=== PATIENT | female | born 1990 | race Caucasian/White ===

== ENCOUNTER 2017-03-08 01:12 | Emergency (ER) | payer MEDICAID ==
[2017-03-08 01:48] VITALS: BP 112/77
[2017-03-08 03:11] LABS: Basophils % (Auto) 0.8 % (0.0-1.8); Eosinophils % (Auto) 1.8 % (0.0-4.3); Hemoglobin 15.2 gm/dl (10.1-14.3); Mean Corpuscular HGB Conc 35 % (30-34); Mean Corpuscular Hemoglobin 28 pg (28-32); Mean Corpuscular Volume 81 fl (79-97); Platelet Count 202 K/mm3 (140-440); Red Blood Count 5.34 M/mm3 (3.65-5.03); Red Cell Distribution Width 13.7 % (13.2-15.2)
[2017-03-08 03:12] LABS: Bacteria,Urine 1+ /HPF (Negative); Bilirubin,Urine NEG (Negative); Blood,Urine SM (Negative); Ketones,Urine NEG (Negative); Leukocyte Esterase,Urine TR (Negative); Mucus,Urine FEW /HPF; Nitrite,Urine NEG (Negative); Protein,Urine <15 mg/dL mg/dL (Negative); Urobilinogen,Urine < 2.0 mg/dL (<2.0)
[2017-03-08 03:26] LABS: Alanine Aminotransferase 11 units/L (7-56); Albumin 4.2 g/dL (3.9-5); Alkaline Phosphatase 53 units/L (35-129); Anion Gap 22 mmol/L; BUN/Creatinine Ratio 23; Blood Urea Nitrogen 9 mg/dL (7-17); Calcium 9.6 mg/dL (8.4-10.2); Carbon Dioxide 21 mmol/L (22-30); Chloride 98.1 mmol/L (98-107); Glucose 76 mg/dL (65-100); Lipase 24 units/L (13-60); Potassium 3.7 mmol/L (3.6-5.0); Sodium 137 mmol/L (137-145); Total Protein 8.3 g/dL (6.3-8.2)
== END 2017-03-08 05:13 | disposition left against medical advice (07) ==
LOC: ED 01:12
DX: O26.891 Other specified pregnancy related conditions, first trimester (principal); R10.9 Unspecified abdominal pain; Z3A.11 11 weeks gestation of pregnancy; Z53.21 Procedure and treatment not carried out due to patient leaving prior to being seen by health care provider
CPT/HCPCS: 36415; 80053; 81001; 81025; 83690; 85025

== ENCOUNTER 2017-10-04 17:56 | Emergency (ER) | payer SELFPAY ==
[2017-10-04] MEDS ORDERED: NACL 0.9% 1000 ML 1,000 ML IV ONE (18:41)
[2017-10-04] MEDS ORDERED: ZOFRAN IV ONE (18:41)
[2017-10-04] MEDS ORDERED: DILAUDID IV ONE (18:41)
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
[2017-10-04 19:24] LABS: Basophils # (Auto) 0.1 K/mm3 (0.0-0.1); Basophils % (Auto) 0.4 % (0.0-1.8); Eosinophils % (Auto) 0.2 % (0.0-4.3); Hematocrit 37.4 % (30.3-42.9); Hemoglobin 12.2 gm/dl (10.1-14.3); Lymphocytes % (Auto) 5.3 % (13.4-35.0); Mean Corpuscular HGB Conc 33 % (30-34); Mean Corpuscular Volume 75 fl (79-97); Monocytes # (Auto) 0.8 K/mm3 (0.0-0.8); Monocytes % (Auto) 4.2 % (0.0-7.3); Platelet Count 445 K/mm3 (140-440); Red Blood Count 4.97 M/mm3 (3.65-5.03); Red Cell Distribution Width 16.9 % (13.2-15.2)
[2017-10-04 19:30] LABS: Mean Corpuscular Hemoglobin 25 pg (28-32)
[2017-10-04 19:41] LABS: INR 1.02 (0.87-1.13)
[2017-10-04 19:48] LABS: Alanine Aminotransferase 18 units/L (7-56); Albumin 3.4 g/dL (3.9-5); BUN/Creatinine Ratio 20; Blood Urea Nitrogen 12 mg/dL (7-17); Calcium 9.3 mg/dL (8.4-10.2); Creatine Kinase MB < 1.0 ng/mL (0.0-4.0); Hemolysis Index 16
--- NOTE | 2017-10-04 21:21 | Cat Scan Report ---
FINAL REPORT PROCEDURE: CT head without contrast. TECHNIQUE: Computerized tomography of the head was performed without contrast material. HISTORY: Syncope, . COMPARISON: No prior studies are available for comparison. FINDINGS: The ventricles are normal in size. The padilla matter and white matter appear normal. There are no mass lesions. There is no intracranial hemorrhage. The calvarium appears intact. There is opacification of the right mastoid air cells. The paranasal sinuses are clear as far as visualized. IMPRESSION: Normal study of the brain. Right mastoiditis.
--- NOTE | 2017-10-04 22:02 | Cat Scan Report ---
FINAL REPORT EXAM: CT ANGIO CHEST HISTORY: syncope, TECHNIQUE: High-resolution helical axial images were obtained of the chest during intravenous administration of iodinated contrast. Images are reconstructed in the sagittal and coronal planes. PRIORS: None. FINDINGS: There is no evidence of pulmonary embolism, the pulmonary arteries opacify normally. The heart and thoracic aorta appear normal. The lungs are clear. Images through the upper abdomen are unremarkable. There is multilevel Schmorl's node formation of the lower thoracic spine. IMPRESSION: 1. No evidence of pulmonary embolism. 2. No acute findings in the chest
--- NOTE | 2017-10-04 22:18 | Cat Scan Report ---
FINAL REPORT EXAM: CT ABDOMEN PELVIS W CON HISTORY: syncope, , back and abd pain TECHNIQUE: Helical CT scan through the abdomen and pelvis during intravenous injection of iodinated contrast. Images are reconstructed in the sagittal and coronal planes. Oral contrast was not given. PRIORS: None. FINDINGS: The lung bases are clear. There is a 8 mm cyst in the left lobe of the liver. Otherwise, the liver appears normal. The gallbladder, pancreas, spleen and adrenal glands appear normal. The kidneys appear normal. The uterus is enlarged consistent with recent state. The left ovary appears normal. The right ovary is not seen. The stomach appears grossly within normal limits. There are no abnormally dilated loops of bowel or acute inflammatory changes. The appendix is not seen in there are surgical clips in its expected location. The abdominal aorta has a normal diameter. There is Schmorl's node formation in the superior endplates from T10 through L2. The bones and subcutaneous soft tissues are unremarkable for age. IMPRESSION: No acute findings in the abdomen/pelvis There has probably been a prior appendectomy. Early degenerative changes of the lower thoracic and upper lumbar spine
[2017-10-04 22:35] LABS: Bacteria,Urine 1+ /HPF (Negative); Bilirubin,Urine NEG (Negative); Blood,Urine MOD (Negative); Color,Urine Yellow (Yellow); Mucus,Urine FEW /HPF; Protein,Urine <15 mg/dL mg/dL (Negative); Urobilinogen,Urine < 2.0 mg/dL (<2.0)
[2017-10-04] MEDS ORDERED: TORADOL IV ONE (23:06)
[2017-10-04] MEDS ORDERED: PERCOCET 5/325 PO ONE (23:06)
[2017-10-05 00:19] VITALS: BP 108/67
== END 2017-10-05 00:48 | disposition home or self-care (01) ==
LOC: ED 17:56
DX: R55 Syncope and collapse (principal); F43.8 Other reactions to severe stress; H70.90 Unspecified mastoiditis, unspecified ear; D72.829 Elevated white blood cell count, unspecified; Z90.49 Acquired absence of other specified parts of digestive tract
CPT/HCPCS: 36415; 70450; 71275; 74177; 80053; 81001; 82550; 82553; 84484; 85025; 85610; 93005; 93010; 96361; 96374; 96375; 99284; J1170; J1885; J2405; J7030; Q9967

== ENCOUNTER 2018-10-27 02:13 | Emergency (ER) | payer MEDICAID, OTHER ==
[2018-10-27 02:46] LABS: Bilirubin,Urine NEG (Negative); Blood,Urine SM (Negative); Color,Urine Straw (Yellow); Protein,Urine <15 mg/dL mg/dL (Negative); Urobilinogen,Urine < 2.0 mg/dL (<2.0); WBC,Urine < 1.0 /HPF (0.0-6.0)
[2018-10-27 02:48] LABS: HCG Qualitative,Urine Positive (Negative)
[2018-10-27] MEDS ORDERED: XYLOCAINE 1% MPF 5 mL INFILTRATI ONE (04:23)
[2018-10-27] MEDS ORDERED: ROCEPHIN IM ONE (04:23)
[2018-10-27] MEDS ORDERED: ZITHROMAX PO ONE (04:23)
--- NOTE | 2018-10-27 04:33 | Emergency Department Report ---
ED Female HPI - General Chief complaint: Urogenital-Female Stated complaint: SWOLLEN LEFT LABIA Time Seen by Provider: 10/27/18 04:21 Source: patient Mode of arrival: Ambulatory Limitations: No Limitations - History of Present Illness Initial comments: Patient is a 28-year-old female who presents for left-sided Bartholin cyst surgical problem for this patient patient currently weeks has [facility] follow-up in 2 days prior states he cannot wait 2 more days to have it lanced patient denies having discharge no abdominal pain no nausea vomiting no fever or chills patient is very same partner multiple years denies concern for STD , however bartholin cyst is a recurring problem MD Complaint: pelvic pain Onset/Timin -: days(s) Location: labia (left ) Severity: moderate Severity scale (0 -10): 5 Quality: sharp Consistency: constant Improves with: none Worsens with: other (palpation) Are you Now?: Yes - Related Data Sexually active: Yes : 4 Para: 1 A: 2 Previous Rx's Medication Instructions Recorded Last Taken Type LORazepam [Ativan] 1 mg PO BID PRN #15 tablet 07/21/14 Unknown Rx oxyCODONE /ACETAMINOPHEN [Percocet 1 - 2 tab PO Q6HR PRN #15 tablet 08/01/14 Unknown Rx 5/325] Acetaminophen/Codeine [Tylenol #3] 1 tab PO Q6H PRN #14 tab 10/16/14 Unknown Rx Clarithromycin [Biaxin] 500 mg PO BID #20 tab 10/16/14 Unknown Rx DOXYCYCLINE Hyclate [Vibramycin 100 mg PO BID #20 capsule 10/16/14 Unknown Rx CAP] Amoxicillin/Potassium Clav 1 each PO BID #20 tablet 10/05/17 Unknown Rx [Augmentin 875-125 Tablet] HYDROcodone/APAP 5-325 [[place] 1 each PO Q6HR PRN #20 tablet 10/05/17 Unknown Rx 5/325] Acetaminophen [Acetaminophen TAB] 650 mg PO Q6HR PRN #30 tablet 10/27/18 Unknown Rx cephALEXin [Keflex] 500 mg PO Q8HR 10 Days #30 cap 10/27/18 Unknown Rx metroNIDAZOLE [metroNIDAZOLE 1 applicatio VG QHS 7 Days #1 tube 10/27/18 Unknown Rx VAGINAL 0.75% gel] Allergies Allergy/AdvReac Type Severity Reaction Status Date / Time No Known Allergies Allergy Verified 06/15/13 22:39 ED Review of Systems ROS: Stated complaint: SWOLLEN LEFT LABIA Other details as noted in HPI Constitutional: denies: chills, fever Eyes: denies: eye pain, eye discharge, vision change ENT: denies: ear pain, throat pain Respiratory: denies: cough, shortness of breath, wheezing Cardiovascular: denies: chest pain, palpitations Endocrine: no symptoms reported Gastrointestinal: denies: abdominal pain, nausea, diarrhea Genitourinary: other (left bartholin cyst ). denies: urgency, dysuria, discharge Musculoskeletal: denies: back pain, joint swelling, arthralgia Skin: denies: rash, lesions Neurological: denies: headache, weakness, paresthesias Psychiatric: denies: anxiety, depression Hematological/Lymphatic: denies: easy bleeding, easy bruising ED Past Medical Hx - Past Medical History Previous Medical History?: Yes Hx HIV: Yes Additional medical history: previous back surgeries - Surgical History Past Surgical History?: Yes Hx Appendectomy: Yes Additional Surgical History: 3 lap surgeries, back surgery. barlin cyst - Social History Smoking Status: Current Every Day Smoker Substance Use Type: None - Medications Home Medications: Home Medications Medication Instructions Recorded Confirmed Last Taken Type LORazepam [Ativan] 1 mg PO BID PRN #15 tablet 07/21/14 Unknown Rx oxyCODONE /ACETAMINOPHEN [Percocet 1 - 2 tab PO Q6HR PRN #15 tablet 08/01/14 Unknown Rx 5/325] Acetaminophen/Codeine [Tylenol #3] 1 tab PO Q6H PRN #14 tab 10/16/14 Unknown Rx Clarithromycin [Biaxin] 500 mg PO BID #20 tab 10/16/14 Unknown Rx DOXYCYCLINE Hyclate [Vibramycin 100 mg PO BID #20 capsule 10/16/14 Unknown Rx CAP] Amoxicillin/Potassium Clav 1 each PO BID #20 tablet 10/05/17 Unknown Rx [Augmentin 875-125 Tablet] HYDROcodone/APAP 5-325 [[place] 1 each PO Q6HR PRN #20 tablet 10/05/17 Unknown Rx 5/325] Acetaminophen [Acetaminophen TAB] 650 mg PO Q6HR PRN #30 tablet 10/27/18 Unknown Rx cephALEXin [Keflex] 500 mg PO Q8HR 10 Days #30 cap 10/27/18 Unknown Rx metroNIDAZOLE [metroNIDAZOLE 1 applicatio VG QHS 7 Days #1 tube 10/27/18 Unknown Rx VAGINAL 0.75% gel] ED Physical Exam - General Limitations: No Limitations General appearance: alert, in no apparent distress - Head Head exam: Present: atraumatic, normocephalic - Eye Eye exam: Present: normal appearance, PERRL, EOMI Pupils: Present: normal accommodation - ENT ENT exam: Present: mucous membranes moist - Neck Neck exam: Present: normal inspection, tenderness, full ROM. Absent: meningismus, lymphadenopathy, thyromegaly - Respiratory Respiratory exam: Present: normal lung sounds bilaterally. Absent: respiratory distress, wheezes, stridor, chest wall tenderness - Cardiovascular Cardiovascular Exam: Present: regular rate, normal rhythm, normal heart sounds. Absent: systolic murmur, diastolic murmur, rubs, gallop - GI/Abdominal GI/Abdominal exam: Present: soft, normal bowel sounds. Absent: tenderness, rebound, bruit, hernia - Rectal Rectal exam: Present: deferred - External exam: Present: erythema, swelling (left labia ). Absent: lesions, lacerations, ecchymosis, bleeding - Extremities Exam Extremities exam: Present: normal inspection, full ROM, normal capillary refill. Absent: tenderness, pedal edema, joint swelling, calf tenderness - Back Exam Back exam: Present: normal inspection, full ROM. Absent: tenderness, CVA tenderness (R), CVA tenderness (L), muscle spasm, paraspinal tenderness, vertebral tenderness, rash noted - Neurological Exam Neurological exam: Present: alert, oriented X3, CN II-XII intact, normal gait, reflexes normal. Absent: motor sensory deficit - Psychiatric Psychiatric exam: Present: normal affect, normal mood - Skin Skin exam: Present: warm, dry, intact, normal color. Absent: rash ED Course Vital Signs 10/27/18 02:18 Temperature 98.0 F Pulse Rate 117 H Respiratory 18 Rate Blood Pressure 110/56 O2 Sat by Pulse 100 Oximetry - I & D Left Vagina Type of Procedure: Simple Site: left labia Blade Size: 11 I & D Procedure: betadine prep, sterile drapes applied, sterile dressing applied Progress: left labia bartholin cyst site cleaned with betadine solution, anesthesia with lidcaine 1% 2 cc, incision with 11 blade x 1 scant clear discharg, irrigated wthi 40 cc sterile saline, sterile dressing applied all bleeding is controlled pt given wound care instructions pt for dc to home in stable condition at this time. ED Medical Decision Making - Medical Decision Making bartholin cyst left for I&D see procedure noted , pt tolerated procedure with minimal distress pt for dc to home in stable condition , is ambualtary with steady gait. pt will follow up in 2 days to OBGYN as as scheduled. Critical care attestation.: If time is entered above; I have spent that time in minutes in the direct care of this critically ill patient, excluding procedure time. ED Disposition Clinical Impression: Bartholin's cyst Disposition: DC-01 TO HOME OR SELFCARE Is pt being admited?: No Does the pt Need Aspirin: No Condition: Stable Instructions: Bartholin Cyst (ED) Prescriptions: metroNIDAZOLE [metroNIDAZOLE VAGINAL 0.75% gel] 1 applicatio VG QHS 7 Days #1 tube Acetaminophen [Acetaminophen TAB] 650 mg PO Q6HR PRN #30 tablet PRN Reason: Pain cephALEXin [Keflex] 500 mg PO Q8HR 10 Days #30 cap Referrals: [facility] [Provider Group] - 3-5 Days [facility] [Outside] - 3-5 Days Forms: Work/School Release Form(ED) Time of Disposition: 04:48
[2018-10-27 05:10] VITALS: BP 121/67
== END 2018-10-27 05:00 | disposition home or self-care (01) ==
LOC: ED 02:13
DX: N75.0 Cyst of Bartholin's gland (principal); F17.200 Nicotine dependence, unspecified, uncomplicated; Z90.89 Acquired absence of other organs
CPT/HCPCS: 56420; 81001; 81025; 96372; 99283; J0696

== ENCOUNTER 2018-12-15 18:00 | Emergency (ER) | payer MEDICAID, OTHER ==
[2018-12-15] MEDS ORDERED: TYLENOL ONE (18:15)
[2018-12-15] MEDS ORDERED: TYLENOL PO ONE (18:18)
--- NOTE | 2018-12-15 18:18 | Event Note ---
ED Screening Note ED Screening Note: 2 M WITH EAR PAIN PAIN OUT OF PROP TO COMPLAINTS DENIES N/V/D DENIES ABD PAIN/ VAG BLEEDING OR DC HIV POS TYLENOL GIVEN IN TRIAGE This initial assessment/diagnostic orders/clinical plan/treatment(s) is/are subject to change based on patients health status, clinical progression and re-assessment by fellow clinical providers in the ED. Further treatment and workup at subsequent clinical providers discretion. Patient/guardian urged not to elope from the ED as their condition may be serious if not clinically assessed and managed. Initial orders include: LABS FLUSH EAR EVAL IN ACC
[2018-12-15 19:39] LABS: Hematocrit 37.3 % (30.3-42.9); Hemoglobin 12.8 gm/dl (10.1-14.3); Mean Corpuscular HGB Conc 34 % (30-34); Mean Corpuscular Volume 82 fl (79-97); Platelet Count 151 K/mm3 (140-440); Red Blood Count 4.56 M/mm3 (3.65-5.03); Red Cell Distribution Width 14.3 % (13.2-15.2)
[2018-12-15 19:56] LABS: BUN/Creatinine Ratio 12; Blood Urea Nitrogen 6 mg/dL (7-17); Calcium 8.8 mg/dL (8.4-10.2); Hemolysis Index 34
--- NOTE | 2018-12-15 20:30 | Emergency Department Report ---
ED ENT HPI - General Chief complaint: Earache Stated complaint: 3MTHS /L EAR INFECTION Time Seen by Provider: 12/15/18 18:12 Source: patient Mode of arrival: Ambulatory Limitations: No Limitations - History of Present Illness Initial comments: Patient is a 28-year-old female who presents for left ear pain and drainage 3 days patient denies fevers or chills pain is 5/10 aching there is no decrease in hearing drainage is brown plan Ciprodex follow up with PCP Tylenol when necessary pain MD complaint: ear pain Onset/Timin -: days(s) Location: L ear Severity: moderate Severity scale (0 -10): 4 Quality: aching Consistency: constant Improves with: rest Worsens with: movement Associated Symptoms: discharge from ear. denies: fever, cough, pain with swallowing, sore throat, tinnitus, rhinorrhea - Related Data Previous Rx's Medication Instructions Recorded Last Taken Type LORazepam [Ativan] 1 mg PO BID PRN #15 tablet 07/21/14 Unknown Rx oxyCODONE /ACETAMINOPHEN [Percocet 1 - 2 tab PO Q6HR PRN #15 tablet 08/01/14 Unknown Rx 5/325] Acetaminophen/Codeine [Tylenol #3] 1 tab PO Q6H PRN #14 tab 10/16/14 Unknown Rx Clarithromycin [Biaxin] 500 mg PO BID #20 tab 10/16/14 Unknown Rx DOXYCYCLINE Hyclate [Vibramycin 100 mg PO BID #20 capsule 10/16/14 Unknown Rx CAP] Amoxicillin/Potassium Clav 1 each PO BID #20 tablet 10/05/17 Unknown Rx [Augmentin 875-125 Tablet] HYDROcodone/APAP 5-325 [[place] 1 each PO Q6HR PRN #20 tablet 10/05/17 Unknown Rx 5/325] Acetaminophen [Acetaminophen TAB] 650 mg PO Q6HR PRN #30 tablet 10/27/18 Unknown Rx cephALEXin [Keflex] 500 mg PO Q8HR 10 Days #30 cap 10/27/18 Unknown Rx metroNIDAZOLE [metroNIDAZOLE 1 applicatio VG QHS 7 Days #1 tube 10/27/18 Unknown Rx VAGINAL 0.75% gel] Acetaminophen [Acetaminophen TAB] 650 mg PO Q6HR PRN #30 tablet 12/15/18 Unknown Rx Ciprofloxacin HCl/Dexameth 4 drops OT BID 10 Days #7.5 ml 12/15/18 Unknown Rx [Ciprodex Otic Suspension] Allergies Allergy/AdvReac Type Severity Reaction Status Date / Time No Known Allergies Allergy Verified 12/15/18 18:02 ED Dental HPI - General Chief complaint: Earache Stated complaint: 3MTHS /L EAR INFECTION Time Seen by Provider: 12/15/18 18:12 Source: patient Mode of arrival: Ambulatory Limitations: No Limitations - Related Data Previous Rx's Medication Instructions Recorded Last Taken Type LORazepam [Ativan] 1 mg PO BID PRN #15 tablet 07/21/14 Unknown Rx oxyCODONE /ACETAMINOPHEN [Percocet 1 - 2 tab PO Q6HR PRN #15 tablet 08/01/14 Unknown Rx 5/325] Acetaminophen/Codeine [Tylenol #3] 1 tab PO Q6H PRN #14 tab 10/16/14 Unknown Rx Clarithromycin [Biaxin] 500 mg PO BID #20 tab 10/16/14 Unknown Rx DOXYCYCLINE Hyclate [Vibramycin 100 mg PO BID #20 capsule 10/16/14 Unknown Rx CAP] Amoxicillin/Potassium Clav 1 each PO BID #20 tablet 10/05/17 Unknown Rx [Augmentin 875-125 Tablet] HYDROcodone/APAP 5-325 [[place] 1 each PO Q6HR PRN #20 tablet 10/05/17 Unknown Rx 5/325] Acetaminophen [Acetaminophen TAB] 650 mg PO Q6HR PRN #30 tablet 10/27/18 Unknown Rx cephALEXin [Keflex] 500 mg PO Q8HR 10 Days #30 cap 10/27/18 Unknown Rx metroNIDAZOLE [metroNIDAZOLE 1 applicatio VG QHS 7 Days #1 tube 10/27/18 Unknown Rx VAGINAL 0.75% gel] Acetaminophen [Acetaminophen TAB] 650 mg PO Q6HR PRN #30 tablet 12/15/18 Unknown Rx Ciprofloxacin HCl/Dexameth 4 drops OT BID 10 Days #7.5 ml 12/15/18 Unknown Rx [Ciprodex Otic Suspension] Allergies Allergy/AdvReac Type Severity Reaction Status Date / Time No Known Allergies Allergy Verified 12/15/18 18:02 ED Review of Systems ROS: Stated complaint: 3MTHS /L EAR INFECTION Other details as noted in HPI Constitutional: denies: chills, fever Eyes: denies: eye pain, eye discharge, vision change ENT: ear pain Respiratory: denies: cough, shortness of breath, wheezing Cardiovascular: denies: chest pain, palpitations Endocrine: no symptoms reported Gastrointestinal: denies: abdominal pain, nausea, diarrhea Genitourinary: denies: urgency, dysuria, discharge Musculoskeletal: denies: back pain, joint swelling, arthralgia Skin: denies: rash, lesions Neurological: denies: headache, weakness, paresthesias Psychiatric: denies: anxiety, depression Hematological/Lymphatic: denies: easy bleeding, easy bruising ED Past Medical Hx - Past Medical History Hx HIV: Yes Additional medical history: previous back surgeries - Surgical History Hx Appendectomy: Yes Additional Surgical History: 3 lap surgeries, back surgery. barlin cyst - Social History Smoking Status: Current Every Day Smoker Substance Use Type: None - Medications Home Medications: Home Medications Medication Instructions Recorded Confirmed Last Taken Type LORazepam [Ativan] 1 mg PO BID PRN #15 tablet 07/21/14 Unknown Rx oxyCODONE /ACETAMINOPHEN [Percocet 1 - 2 tab PO Q6HR PRN #15 tablet 08/01/14 Unknown Rx 5/325] Acetaminophen/Codeine [Tylenol #3] 1 tab PO Q6H PRN #14 tab 10/16/14 Unknown Rx Clarithromycin [Biaxin] 500 mg PO BID #20 tab 10/16/14 Unknown Rx DOXYCYCLINE Hyclate [Vibramycin 100 mg PO BID #20 capsule 10/16/14 Unknown Rx CAP] Amoxicillin/Potassium Clav 1 each PO BID #20 tablet 10/05/17 Unknown Rx [Augmentin 875-125 Tablet] HYDROcodone/APAP 5-325 [[place] 1 each PO Q6HR PRN #20 tablet 10/05/17 Unknown Rx 5/325] Acetaminophen [Acetaminophen TAB] 650 mg PO Q6HR PRN #30 tablet 10/27/18 Unknown Rx cephALEXin [Keflex] 500 mg PO Q8HR 10 Days #30 cap 10/27/18 Unknown Rx metroNIDAZOLE [metroNIDAZOLE 1 applicatio VG QHS 7 Days #1 tube 10/27/18 Unknown Rx VAGINAL 0.75% gel] Acetaminophen [Acetaminophen TAB] 650 mg PO Q6HR PRN #30 tablet 12/15/18 Unknown Rx Ciprofloxacin HCl/Dexameth 4 drops OT BID 10 Days #7.5 ml 12/15/18 Unknown Rx [Ciprodex Otic Suspension] ED Physical Exam - General Limitations: No Limitations General appearance: alert, in no apparent distress - Head Head exam: Present: atraumatic, normocephalic - Eye Eye exam: Present: normal appearance, PERRL, EOMI Pupils: Present: normal accommodation - ENT ENT exam: Present: normal orophraynx, mucous membranes moist, normal external ear exam - Expanded ENT Exam Expanded Ear exam: Present: normal external inspection TM/Canal exam: Canal Discharge: Left TM, Canal Tenderness: Left TM - Neck Neck exam: Present: normal inspection, full ROM. Absent: tenderness, lymphadenopathy, thyromegaly - Respiratory Respiratory exam: Present: normal lung sounds bilaterally. Absent: wheezes, stridor, chest wall tenderness - Cardiovascular Cardiovascular Exam: Present: regular rate, normal rhythm, normal heart sounds. Absent: systolic murmur, diastolic murmur, rubs, gallop - GI/Abdominal GI/Abdominal exam: Present: soft, normal bowel sounds. Absent: distended, tenderness, bruit, hernia - Rectal Rectal exam: Present: deferred - Extremities Exam Extremities exam: Present: normal inspection, full ROM, normal capillary refill. Absent: tenderness - Back Exam Back exam: Present: normal inspection, full ROM. Absent: tenderness, CVA tenderness (R), CVA tenderness (L), rash noted - Neurological Exam Neurological exam: Present: alert, oriented X3, CN II-XII intact, normal gait, reflexes normal - Psychiatric Psychiatric exam: Present: normal affect, normal mood - Skin Skin exam: Present: warm, dry, intact, normal color. Absent: rash ED Medical Decision Making - Lab Data Result diagrams: 12/15/18 19:09 12/15/18 19:09 - Medical Decision Making This is OE plan ciprodex follow up with pcp in 2-3 days return to emergency if symptoms worsen. Critical care attestation.: If time is entered above; I have spent that time in minutes in the direct care of this critically ill patient, excluding procedure time. ED Disposition Clinical Impression: Otitis externa Qualifiers: Otitis externa type: unspecified type Chronicity: acute Laterality: left Qualified Code(s): H60.502 - Unspecified acute noninfective otitis externa, left ear Disposition: DC- TO HOME OR SELFCARE Is pt being admited?: No Does the pt Need Aspirin: No Condition: Stable Instructions: Otitis Externa (ED) Prescriptions: Acetaminophen [Acetaminophen TAB] 650 mg PO Q6HR PRN #30 tablet PRN Reason: Pain Ciprofloxacin HCl/Dexameth [Ciprodex Otic Suspension] 4 drops OT BID 10 Days #7.5 ml Referrals: CICI WEBER MD [Staff Physician] - 3-5 Days FELICITA HOLGUIN MD [Staff Physician] - 3-5 Days Forms: Work/School Release Form(ED)
[2018-12-15 20:42] VITALS: BP 98/66
== END 2018-12-15 20:38 | disposition home or self-care (01) ==
LOC: ED 18:00
DX: H60.502 Unspecified acute noninfective otitis externa, left ear (principal); F17.200 Nicotine dependence, unspecified, uncomplicated
CPT/HCPCS: 36415; 80048; 84702; 85027

== ENCOUNTER 2019-05-12 23:16 | Inpatient (IN) | payer MEDICAID ==
[2019-05-12] MEDS: LACTATED RINGERS 1,000 ML IV SCH (23:30)
[2019-05-12] MEDS ORDERED: LACTATED RINGERS 2,000 ML ONE (23:34)
[2019-05-12] MEDS ORDERED: OXYTOCIN 20 UNIT/1000ML DRIP 20 UNITS/1,000 ML BAG IV SCH (23:45)
[2019-05-12] MEDS ORDERED: ceFAZolin/Water 2 GM/20 ML 2 GM/20 ML SYRINGE IV NR (23:45)
[2019-05-12] MEDS ORDERED: BICITRA ORAL LIQD 30ML PO ONE (23:53)
[2019-05-12] MEDS ORDERED: ZIDOVUDINE IV ONE (23:53)
[2019-05-12] MEDS ORDERED: METOCLOPRAMIDE 10 MG/2 ML INJ IV ONE (23:53)
[2019-05-12] MEDS ORDERED: DEXTROSE 5% IV ONE (23:53)
[2019-05-12] MEDS ORDERED: WATER IV ONE (23:53)
[2019-05-12] MEDS ORDERED: FAMOTIDINE 20 MG/2 ML INJ IV ONE (23:53)
[2019-05-13] MEDS ORDERED: BICITRA ORAL LIQD 30ML ONE (00:01)
[2019-05-13] MEDS ORDERED: FAMOTIDINE 20 MG/2 ML INJ IV ONE (00:01)
[2019-05-13] MEDS ORDERED: METOCLOPRAMIDE 10 MG/2 ML INJ ONE (00:01)
[2019-05-13] MEDS ORDERED: ceFAZolin/Water 2 GM/20 ML 2 GM/20 ML SYRINGE IV ONE (00:01)
[2019-05-13] MEDS ORDERED: OXYTOCIN 20 UNIT/1000ML DRIP 40,000 MILLIUNITS/2,000 ML BAG IV ONE (00:01)
[2019-05-13 00:21] LABS: Basophils # (Auto) 0.1 K/mm3 (0.0-0.1); Basophils % (Auto) 0.7 % (0.0-1.8); Eosinophils # (Auto) 0.1 K/mm3 (0.0-0.4); Eosinophils % (Auto) 0.9 % (0.0-4.3); Hematocrit 36.3 % (30.3-42.9); Lymphocytes # (Auto) 1.7 K/mm3 (1.2-5.4); Lymphocytes % (Auto) 18.5 % (13.4-35.0); Mean Corpuscular HGB Conc 33 % (30-34); Mean Corpuscular Volume 78 fl (79-97); Monocytes # (Auto) 0.7 K/mm3 (0.0-0.8); Platelet Count 210 K/mm3 (140-440); Red Blood Count 4.66 M/mm3 (3.65-5.03); Red Cell Distribution Width 14.9 % (13.2-15.2)
--- NOTE | 2019-05-13 00:29 | Anesthesia Consultation ---
Anesthesia Consult and Med Hx Date of service: 05/13/19 - Airway Anesthetic Teeth Evaluation: Poor, Partials ROM Head & Neck: Adequate Mental/Hyoid Distance: Adequate Mallampati Class: Class III Intubation Access Assessment: Probably Good - Pulmonary Exam CTA: Yes - Cardiac Exam Cardiac Exam: RRR - Pre-Operative Health Status ASA Pre-Surgery Classification: ASA3, Emergency Proposed Anesthetic Plan: Epidural - Pulmonary Hx Smoking: No Hx Asthma: No Hx Respiratory Symptoms: No SOB: No COPD: No Home Oxygen Therapy: No Hx Pneumonia: No Hx Sleep Apnea: No - Cardiovascular System Hx Hypertension: No Hx Coronary Artery Disease: No Hx Heart Attack/AMI: No Hx Angina: No Hx Percutaneous Transluminal Coronary Angioplasty (PTCA): No Hx Cardia Arrhythmia: No Hx Pacemaker: No Hx Internal Defibrillator: No Hx Valvular Heart Disease: No Hx Heart Murmur: No Hx Peripheral Vascular Disease: No - Central Nervous System Hx Neuromuscular Disorder: No Hx Seizures: Yes (with last ) CVA: No Hx Back Pain: Yes Hx Psychiatric Problems: No - Gastrointestinal Hx Ulcer: No Hx Gastroesophageal Reflux Disease: Yes - Endocrine Hx Renal Disease: No Hx End Stage Renal Disease: No Hx Cirrhosis: No Hx Liver Disease: No Hx Insulin Dependent Diabetes: No Hx Non-Insulin Dependent Diabetes: No Hx Thyroid Disease: No Hx Hypothyroidism: No Hx Hyperthyroidism: No - Hematic Hx Anemia: No Hx Sickle Cell Disease: No - Other Systems Hx Alcohol Use: Yes Hx Substance Use: No Hx Cancer: No Hx Obesity: No - Additional Comments Anesthesia Medical History Comments: PSH: SOHAIL, LANCING OF BOIL CYST
[2019-05-13] MEDS ORDERED: ONDANSETRON 4 MG/2 ML INJ IV PRN ×2 (00:30→06:27)
[2019-05-13] MEDS ORDERED: HYDROmorphone 1 MG/1 ML INJ IV PRN ×2 (00:30)
[2019-05-13] MEDS ORDERED: fentaNYL 100 MCG/2 ML INJ ONE (00:30)
--- NOTE | 2019-05-13 00:30 | Anesthesia Day of Surgery ---
Anesthesia Day of Surgery - Day of Surgery Patient Examined: Yes Patient H&P Reviewed: Yes Patient is NPO: Yes Beta Blockers: No Cardiac Clearance: No Pulmonary Clearance: No Demetris's Test: N/A
--- NOTE | 2019-05-13 00:52 | History and Physical Report ---
History of Present Illness Date of examination: 05/13/19 Chief complaint: contractions History of present illness: Pt is a 28 year old female YINKA 06/07/19 at 36w3d presents with re gular painful contractions for the past 2-3 hours. She was noted to be 4/80/-1 on exam. She denies leakage of fluid or vaginal bleeding. She has had care at [facility] with limited records available for review. Her course has been complicated by HIV positive status on retroviral therapy with undetectable viral load on 04/23/19 and repeat viral load drawn in the office today. CD4 count was 318n on 04/21/19. She has a history of one prior section. She also has a h/o seizure disorder s/p Neurology referral. Her GBS status is unknown. Past History Past Medical History: seizure, other (HIV) Past Surgical History: appendectomy, REWEAVER/uterine surgery (bartholin cyst excision ), section, other ("exploratory surgery" ) REWEAVER History: HIV Social history: - Obstetrical History Expected Date of Delivery: 06/07/19 Actual Gestation: 36 Week(s) 3 Day(s) : 4 Para: 1 Hx # Term Pregnancies: 1 Number of Pregnancies: 0 Spontaneous Abortions: 1 Induced : 1 Number of Living Children: 1 Medications and Allergies Allergies Allergy/AdvReac Type Severity Reaction Status Date / Time No Known Allergies Allergy Verified 05/12/19 23:22 Home Medications Medication Instructions Recorded Confirmed Last Taken Type Bictegrav/Emtricit/Tenofov Ala 50 mg PO DAILY 04/11/19 05/13/19 05/12/19 History [Biktarvy 50-200-25 mg (Nf)] Active Meds: Active Medications Hydromorphone HCl (Dilaudid) 0.5 mg IV Q5M PRN PRN Reason: BREAK Stop: 05/13/19 06:59 Hydromorphone HCl (Dilaudid) 0.5 mg IV Q4H PRN PRN Reason: breakthrough pain > 7/10 Oxytocin/Sodium Chloride (Pitocin/Ns 20 Unit/1000ml Drip) 20 units in 1,000 mls @ 0 mls/hr IV TITR JAGDEEP Lactated Ringer's (Lactated Ringers) 1,000 mls @ 2,250 mls/hr IV PREOP JAGDEEP Stop: 05/14/19 00:12 Zidovudine 400 mg/ Dextrose 200 mls @ 33.566 mls/hr IV DIRECT JAGDEEP Zidovudine 134 mg/ Dextrose 113.4 mls @ 113.4 mls/hr IV ONCE ONE Stop: 05/13/19 00:52 Ondansetron HCl (Zofran) 4 mg IV Q8H PRN PRN Reason: Nausea And Vomiting Sodium Chloride (Sodium Chloride Flush Syringe 10 Ml) 10 ml IV PRN PRN PRN Reason: LINE FLUSH Review of Systems All systems: negative - Physical Exam Breasts: Positive: deferred Cardiovascular: Regular rate Lungs: Positive: Clear to auscultation Abdomen: Positive: soft (gravid ) Genitourinary (Female): Positive: normal external genitalia Uterus: Positive: enlarged (gravid ) Extremities: Positive: normal - Obstetrical FHR: category 2 Uterine Contraction Monitor Mode: External Cervical Dilatation: 4 (per RN ) Cervical Effacement Percentage: 80 station: -1 Uterine Contraction Pattern: Regular Uterine Tone Measurement Phase: Resting Uterine Contraction Intensity: Strong/Firm Results Result Diagrams: 05/12/19 23:53 Abnormal lab results 05/12/19 Range/Units 23:53 MCV 78 L (79-97) fl MCH 26 L (28-32) pg Seg Neutrophils % 72.9 H (40.0-70.0) % All other labs normal. Assessment and Plan A: IUP at 36w3d Active labor Prior section HIV Positive status Seizure Disorder GBS unknown P: Admit to labor and delivery Initiate AZT protocol Proceed with repeat section and other indicated procedures NICU aware
[2019-05-13] MEDS ORDERED: DEXMEDETOMIDINE 200 MCG/2 ML VIAL IV ONE (00:58)
[2019-05-13] MEDS ORDERED: ZIDOVUDINE 400 MG in DEXTROSE 5% IN WATER 160 ML IV SCH (01:00)
[2019-05-13 01:08] LABS: Hepatitis C Virus Antibody Non-Reactive (NonReactive)
[2019-05-13 01:09] LABS: Amphetamine Screen,Urine PRESUMPTIVE NEGATIVE; Benzodiazepines Screen,Urine PRESUMPTIVE NEGATIVE; Cocaine Screen,Urine PRESUMPTIVE NEGATIVE; Methadone Screen,Urine PRESUMPTIVE NEGATIVE; Opiate Screen,Urine PRESUMPTIVE NEGATIVE
[2019-05-13 01:24] LABS: HCG,Quantitative 22242 mIU/mL (0-4)
[2019-05-13] MEDS ORDERED: ceFAZolin 1 GM VIAL IV ONE (01:45)
[2019-05-13] MEDS ORDERED: SODIUM CHLORIDE 0.9% IRR 1,500 ML BOTTLE IR ONE (01:45)
[2019-05-13] MEDS ORDERED: WATER FOR IRRIG STERILE 1,500 ML BOTTLE IR ONE (01:45)
[2019-05-13] MEDS ORDERED: PHENYLEPHRINE 10 MG/1 ML INJ SDV ONE (01:59)
[2019-05-13 02:03] LABS: Cannabinoid Screen,Urine PRESUMPTIVE POSITIVE
[2019-05-13] MEDS ORDERED: OXYTOCIN 10 UNIT/1 ML INJ ONE (02:27)
[2019-05-13] MEDS ORDERED: KETOROLAC 30 MG/1 ML INJ ONE (02:29)
[2019-05-13] MEDS ORDERED: ONDANSETRON 4 MG/2 ML INJ ONE (02:30)
--- NOTE | 2019-05-13 03:15 | Operative Report ---
Operative Report Operative Report: Date of procedure: May 13, 2019 Preoperative diagnosis: 1) IUP at 36w3d 2) Active labor 3) Previous section 4) HIV Positive Postoperative diagnosis: Same 5) Adhesive Disease Procedure: Repeat low transverse section, Lysis of Adhesions Surgeon: Prudence Holland M.D. Anesthesia: Regional Findings: 1) Viable female , Apgars 8 and 9, weight 2731g, (6 lb 0.3 oz) in cephalic presentation 2) Normal-appearing uterus ovaries and tubes Estimated blood loss: 800 mL IV fluids:1500 mL Urine output: 200 mL, clear at the end of the procedure Drains: Arango to gravity Specimens: Placenta to pathology Complications: Counts correct x 3 Disposition: Stable to PACU Indication for procedure: Pt is a 28 year old at 36w3d with a history of HIV positive status and one prior section who presents in active labor. The decision was made to proceed with delivery. Operation in detail: After the risks, benefits, alternatives and complications were explained to the patient she gave informed consent for the procedure. She was subsequently taken to the operating room where regional anesthesia was noted to be adequate. She was subsequently placed in the dorsal supine position with leftward tilt and prepped and draped in a normal sterile fashion. heart tones were noted to be in the 140s prior to incision. A timeout was performed. A Pfannenstiel skin incision was made with the knife and carried down to the layer of the fascia with the Bovie. The fascia was incised in the midline and the fascial incision was extended bilaterally with the Bovie. The fascial incision was then stretched. The rectus muscles were then in the midline. The peritoneum was then entered bluntly. The peritoneal incision was extended with good visualization of the bladder. Fifteen minutes was then spent in lysis of adhesions of the peritoneum to the anterior surface of the uterus with the Bovie. The peritoneal incision was then stretched. An Brian retractor was placed. The bladder blade was placed. The vesicouterine peritoneum was grasped with smooth pickups and incised with Metzenbaum scissors. Metzenbaum scissors were used to extend the incision bilaterally. The bladder flap was then created digitally and the bladder blade was replaced. A transverse incision was made in the lower uterine segment with a knife and extended bilaterally with the bandage scissors. The head was delivered with some difficulty followed by shoulders and body. was bulb suctioned at delivery. The cord was clamped and cut and the was handed to NICU staff in attendance. The placenta was then delivered manually. The uterus was then exteriorized and cleared of all clots and debris. The hysterotomy was then reapproximated with 0 Vicryl in a running locked fashion. A figure of eight of 0 Vicryl was used at the left side of the hysterotomy to obtain hemostasis. The hysterotomy was inspected and hemostasis was noted. The uterus was placed back into the peritoneal cavity. The gutters were irrigated and cleared of all clots and debris. The hysterotomy was again inspected and noted to be hemostatic. Surgicel was placed over the hysterotomy. Intercede was placed over the anterior surface of the uterus. The peritoneum was reapproximated with 2-0 Vicryl in a running fashion incorporating the rectus muscles. The fascia was reapproximated with 0-Vicryl in a running fashion. The subcutaneous tissue was reapproximated with 3-0 Vicryl in a running fashion. The skin was reapproximated with 4-0 Vicryl in a subcuticular fashion. The incision was then covered with steri strips and a pressure dressing. The procedure was then ended. The patient tolerated the procedure well and was taken to the PACU in stable condition. All instrument, lap, and needle counts were correct 3.
--- NOTE | 2019-05-13 03:15 | Procedure Note ---
OB Delivery Note - Delivery Date of Delivery: 05/13/19 Surgeon: FELICITA HOLGUIN Estimated blood loss: other (800 mL) - Section Preop diagnosis: repeat , other ( labor ) Postop diagnosis: same section procedure: section, repeat low transverse, other (Lysis of Adhesions ) Disposition: PACU Complications: none Narrative: Please see operative report. - A at 1 minute: 8 at 5 minutes: 9 Infant Gender: Female (2731g (6lb 0.3 oz) @ 0200 am)
--- NOTE | 2019-05-13 03:30 | Post Anesthesia Evaluation ---
- Post Anesthesia Evaluation Patient Participated: Yes Airway Patent: Yes Stable Respiratory Function: Yes Nausea/Vomiting: No Temp > 96.8F: Yes Pain Manageable: Yes Adequeate Hydration: Yes Anesthesia Complications: No Block Receding Appropriately: Yes Patient on Ventilator: No
[2019-05-13] MEDS ORDERED: D5W/LACTATED RINGERS 1,000 ML IV SCH (06:27)
[2019-05-13] MEDS ORDERED: LANOLIN/ZINC/DIMETHICONE (LANSINOH) 7 GM TP PRN (06:27)
[2019-05-13] MEDS ORDERED: MAGNESIUM HYDROXIDE (MOM) ORAL LIQD UDC PO PRN (06:27)
[2019-05-13] MEDS ORDERED: WITCH HAZEL/ GLYCERIN PAD TP PRN (06:27)
[2019-05-13] MEDS ORDERED: OXYTOCIN 20 UNIT/1000ML DRIP 20 UNITS/1,000 ML BAG IV SCH (06:27)
[2019-05-13] MEDS ORDERED: NALOXONE 0.4 MG/1 ML INJ IV PRN (06:27)
[2019-05-13] MEDS ORDERED: SIMETHICONE 80 MG CHEW TAB PO PRN (06:27)
[2019-05-13] MEDS ORDERED: IBUPROFEN 800 MG TAB PO PRN (06:27)
[2019-05-13] MEDS: LACTATED RINGERS 1,000 ML IV SCH (08:03)
[2019-05-13] MEDS: KETOROLAC 30 MG/1 ML INJ IV PRN ×2 (10:22→20:55)
[2019-05-13] MEDS: ceFAZolin/NS 1 GM/50 ML 1 GM/50 ML BAG IV SCH ×2 (10:23→20:00)
[2019-05-13 15:38] LABS: Hematocrit 29.1 % (30.3-42.9); Hemoglobin 9.6 gm/dl (10.1-14.3)
[2019-05-14] MEDS: oxyCODONE /ACETAMINOPHEN 5-325MG TAB PO PRN ×5 (01:19→23:32)
[2019-05-14] MEDS ORDERED: MEASLES, MUMPS & RUBELLA 12,500 UNIT/0.5 ML VACCINE SUB-Q ONE (03:24)
[2019-05-14] MEDS ORDERED: TETANUS,DIPH,PERTUSS(ACELL) VACCINE 0.5 ML SYRINGE IM ONE (06:00)
--- NOTE | 2019-05-14 08:52 | Progress Note ---
Assessment and Plan A/P POD2 walk in patient with HIV s/p repeat csec Routine care ID consult routine PP care + marijuana SS consult Subjective - Subjective Date of service: 05/14/19 Principal diagnosis: s/p repeat csec/HIV+ Patient reports: appetite normal, voiding normally, pain well controlled, ambulating normally [place]: doing well Objective - Vital Signs Latest vital signs: Vital Signs Temp Pulse Resp BP Pulse Ox 05/14/19 06:52 18 05/14/19 02:16 98.1 F 72 20 102/61 100 05/14/19 01:19 18 05/13/19 22:19 98.2 F 80 18 105/59 96 05/13/19 20:55 18 05/13/19 17:45 98.5 F 69 18 105/55 100 05/13/19 13:05 98.2 F 63 18 97/50 97 05/13/19 08:56 97.7 F 54 L 16 124/87 99 Intake and Output 05/13/19 05/14/19 05/14/19 23:59 07:59 15:59 Intake Total 1040 540 Output Total 300 Balance 1040 240 Intake: Oral 560 300 Intake, Free Water 480 240 Output: Urine 300 Void 300 Other: Total, Intake Amount 200 300 Total, Output Amount 300 # Voids Void 1 - Exam Breasts: Present: normal Cardiovascular: Present: Regular rate, Normal S1 Lungs: Present: Clear to auscultation, Normal air movement Abdomen: Present: normal appearance, soft, normal bowel sounds. Absent: distention, tenderness, guarding Uterus: Present: normal, firm, fundal height below umbilicus. Absent: bogginess, tenderness Extremities: Present: normal Deep Tendon Reflex Grade: Normal +2 Incision: Present: normal, dry, intact - Labs Labs: Abnormal lab results 05/13/19 Range/Units 15:22 Hgb 9.6 L (10.1-14.3) gm/dl Hct 29.1 L D (30.3-42.9) %
--- NOTE | 2019-05-14 18:25 | Consultation ---
History of Present Illness - Reason for Consult Consult date: 05/14/19 HIV, Requesting physician: LALITO LAU - History of Present Illness The patient is a 28-year-old female with history of HIV, seizure disorder who came in to the hospital with active labor on 05/13/2019. She underwent a , is doing well post operatively. Patient was also given AZT procotol prior to delivery. ID was consulted for HIV management. Patient follows at [facility], has been on Biktarvy, compliant with meds, VL was undetectable reportedly on 04/23/2019 with CD4 count of 318. Patient states she started meds around December 2018, has remained undetectable since Jan 2019. Currently doing well, has no complaints. Review of Systems: General: no fevers,chills or rigors HEENT: no new visual disturbance Respiratory: No cough, sputum, hemoptysis or shortness of breath Cardiovascular: No chest pain, syncope Gastrointestinal: No nausea, vomiting or diarrhea Genitourinary: No dysuria or hematuria Musculoskeletal: No new or worsening neck pain or back pain Neurologic: No headaches, seizures Hematologic: No easy bruising or bleeding Endocrine: No night sweats or acute weight loss Skin: negative for rash, jaundice Psychiatric: No suicidal or homicidal ideation Past History Social history: Medications and Allergies Allergies Allergy/AdvReac Type Severity Reaction Status Date / Time No Known Allergies Allergy Verified 05/12/19 23:22 Home Medications Medication Instructions Recorded Confirmed Last Taken Type Bictegrav/Emtricit/Tenofov Ala 50 mg PO DAILY 04/11/19 05/13/19 05/12/19 History [Biktarvy 50-200-25 mg (Nf)] Active Meds: Active Medications Diphtheria/Tetanus/Acell Pertussis (Boostrix) 0.5 ml IM .ONCE ONE Stop: 05/15/19 06:01 Hydromorphone HCl (Dilaudid) 0.5 mg IV Q4H PRN PRN Reason: breakthrough pain > 7/10 Oxytocin/Sodium Chloride (Pitocin/Ns 20 Unit/1000ml Drip) 20 units in 1,000 mls @ 250 mls/hr IV DIRECT JAGDEEP Dextrose/Lactated Ringer's (D5lr) 1,000 mls @ 125 mls/hr IV DIRECT JAGDEEP Ibuprofen (Ibuprofen) 800 mg PO Q6H PRN PRN Reason: Pain, Mild (1-3) Ketorolac Tromethamine (Toradol) 30 mg IV Q6H PRN PRN Reason: Pain, Moderate (4-6) Stop: 05/18/19 06:26 Last Admin: 05/13/19 20:55 Dose: 30 mg Documented by: Magnesium Hydroxide (Milk Of Magnesia) 30 ml PO QHS PRN PRN Reason: Constip Unrelieved By Senna Multi-Ingredient Ointment (Lansinoh) 1 applic TP PRN PRN PRN Reason: dryness/cracking Naloxone HCl (Naloxone) 0.1 mg IV Q2MIN PRN PRN Reason: Res Rate </= 8 or 02 SAT < 92% Ondansetron HCl (Zofran) 4 mg IV Q8H PRN PRN Reason: Nausea And Vomiting Oxycodone/Acetaminophen (Percocet 5/325) 2 tab PO Q4H PRN PRN Reason: Pain, Moderate (4-6) Last Admin: 05/14/19 13:31 Dose: 2 tab Documented by: Simethicone (Mylicon) 80 mg PO Q6H PRN PRN Reason: Gas pain Sodium Chloride (Sodium Chloride Flush Syringe 10 Ml) 10 ml IV PRN PRN PRN Reason: LINE FLUSH Witch Jenny/Glycerin (Tucks Pad) 1 each TP PRN PRN PRN Reason: Hemorrhoids/cleansing/soothing Physical Examination - Physical Exam Narrative exam: Physical Exam: Constitutional: Alert, cooperative. No acute distress Head, Ears, Nose: Normocephalic, atraumatic. External ears, nose normal Eyes: Conjunctivae/corneas clear. No icterus. No ptosis. Neck: Supple, no meningeal signs Oral: dentition fair, no thrush Cardiovascular: S1, S2 normal. Respiratory: Good air entry, clear to auscultation bilaterally GI: Soft, non-tender; bowel sounds normal. No peritoneal signs. Incision with mild tenderness Musculoskeletal: No pedal edema, no cyanosis. Skin: No rash or abscess Hem/Lymphatic: No palpable cervical or supraclavicular nodes. No lymphangitis Psych: Mood ok. Affect normal Neurological: Awake, alert, oriented. No gross abnormality - Constitutional Vitals: Vital Signs Temp Pulse Resp BP Pulse Ox 97.4 F L 78 18 97/60 100 05/14/19 16:22 05/14/19 16:22 05/14/19 16:22 05/14/19 16:22 05/14/19 02:16 Temperature -Last 24 Hours Temperature 97.4 F Temperature 97.5 F Temperature 98.1 F Temperature 98.2 F Results - Labs CBC & Chem 7: 05/13/19 15:22 Assessment and Plan Cultures: None A/P: 28-year-old female with history of HIV, seizure disorder who came in to the hospital with active labor on 05/13/2019. She underwent a , is doing well post operatively: #HIV: on Biktarvy prior to admission with good virologic control. VL was undetectable reportedly on 04/23/2019 with CD4 count of 318. Biktarvy is non- formulary here, gave alternative options. #Post status: avoidance of breast feeding. care and HIV prophylaxis per neonatology. Recs: Biktarvy is non-formulary here, gave alternative options but patient states she will have someone bring her meds in today and continue that. Order placed for Biktarvy (use patient's own supply) avoidance of breast feeding care and HIV prophylaxis of the baby per neonatology Sohan Schultz MD, FACP [facility] C: [phone] O: [phone] F: [phone]
[2019-05-14] MEDS ORDERED: NON-FORMULARY EACH (Biktarvy 1 TAB) PO SCH (19:00)
[2019-05-15] MEDS: oxyCODONE /ACETAMINOPHEN 5-325MG TAB PO PRN ×4 (04:41→18:41)
[2019-05-15] MEDS ORDERED: TETANUS,DIPH,PERTUSS(ACELL) VACCINE 0.5 ML SYRINGE IM ONE (06:00)
--- NOTE | 2019-05-15 10:27 | Progress Note ---
Assessment and Plan POD2 s/p repeat LTCS Vital signs stable Acute anemia- ferrous sulfate HIV positive- s/p ID consult. ART not formulary, pt will continue taking home medication Marijuana use in - s/p SS consult Routine pp care D/c to home on POD3 Subjective - Subjective Date of service: 05/15/19 Principal diagnosis: s/p repeat csec/HIV+ Interval history: Pt is POD2 s/p repeat c/s. She is s/p ID and case management consult. Patient reports: appetite normal, voiding normally, pain well controlled, flatus, ambulating normally [place]: doing well, bottle feeding Objective - Vital Signs Latest vital signs: Vital Signs Temp Pulse Resp BP BP Pulse Ox 05/15/19 08:19 97.7 F 82 20 119/74 96 05/15/19 04:41 18 05/15/19 00:09 97.4 F L 83 20 116/74 97 05/14/19 16:22 97.4 F L 78 18 97/60 Intake and Output 05/14/19 05/15/19 05/15/19 23:59 07:59 15:59 Intake Total 480 240 Balance 480 240 Intake: Oral 480 240 Other: Total, Intake Amount 480 240 # Voids Void 1 1 - Exam Lungs: Present: Normal air movement Abdomen: Present: soft Uterus: Present: firm, fundal height below umbilicus Extremities: Present: normal Incision: Present: dressed
[2019-05-16] MEDS: oxyCODONE /ACETAMINOPHEN 5-325MG TAB PO PRN ×2 (01:14→08:10)
--- NOTE | 2019-05-16 11:41 | Progress Note ---
Assessment and Plan POD3 s/p repeat LTCS Vital signs stable Acute anemia- ferrous sulfate HIV positive- s/p ID consult. ART not formulary, pt will continue taking home medication Marijuana use in - s/p SS consult R/o post-op bleeding- CT scan abdomen and pelvis Subjective - Subjective Date of service: 05/16/19 Principal diagnosis: s/p repeat csec/HIV+ Interval history: Pt is POD3 s/p repeat c/s. She is s/p ID and case management consult. Patient reports: appetite normal, voiding normally, flatus, pain poorly controlled, ambulating normally [place]: doing well, bottle feeding Objective - Vital Signs Latest vital signs: Vital Signs Temp Pulse Resp BP BP Pulse Ox 05/16/19 08:10 18 05/16/19 07:48 100.0 F H 78 18 127/83 99 05/16/19 00:00 98.0 F 78 18 104/68 05/15/19 16:27 98.2 F 82 20 108/54 97 Intake and Output 05/15/19 05/16/19 05/16/19 23:59 07:59 15:59 Intake Total 720 240 Balance 720 240 Intake: Oral 720 240 Other: Total, Intake Amount 240 240 # Voids Void 1 1 - Exam Lungs: Present: Normal air movement Abdomen: Present: distention, tenderness, guarding Uterus: Present: firm, fundal height below umbilicus Extremities: Present: normal Incision: Present: normal, dry, intact
[2019-05-16 14:46] LABS: BUN/Creatinine Ratio 18; Blood Urea Nitrogen 9 mg/dL (7-17); Calcium 8.4 mg/dL (8.4-10.2)
[2019-05-16 14:47] LABS: Alanine Aminotransferase 7 units/L (7-56); Albumin 2.5 g/dL (3.9-5); Hemolysis Index 54
[2019-05-16 17:35] VITALS: BP 117/80
--- NOTE | 2019-05-16 18:28 | Cat Scan Report ---
CT abdomen pelvis w con INDICATION / CLINICAL INFORMATION: MAIN: Post-op distention and pain IV ONLY OMNIPAQUE 300 100ML HX HIV POST PARDUM. TECHNIQUE: Axial CT imaging of abdomen and pelvis was obtained with iv contrast. Coronal and sagittal reformatte d imaging obtained and reviewed. All CT scans at this location are performed using CT dose reductio n for LISA by means of automated exposure control. COMPARISON: 10/04/2017. FINDINGS: CT abdomen with contrast demonstrates grossly normal appearance of the liver, spleen, pancreas, kidne ys, and adrenal glands. Gallbladder is mildly distended but does not appear to be acutely inflamed. N o biliary dilatation identified. There is prominent gaseous distention of the colon. No pericolonic inflammatory change or colonic wal l thickening is noted. Stool and gas are present in the rectum. I do not see significant small bowel distention. The stomach is not abnormally distended. No free air or free fluid of significance is pre sent. CT pelvis demonstrates large heterogeneous uterus. I suspect this is a uterus based on joe earance. No additional abnormal findings within the pelvis. The appendix is not identified but I susp ect has been surgically removed. Visualized lung bases show mild bibasilar atelectasis and small bilateral pleural effusions. No significant osseous abnormality. IMPRESSION: 1. Marked colonic distention with gas and stool. I do not see any evidence for mechanical bowel obstr uction. 2. Enlarged heterogeneous uterus. The appearance is most suggestive of a uterus. Please co nfirm with clinical history. 3. Trace bilateral pleural effusions with bibasilar atelectasis. Signer Name: Mamie Macario MD Signed: 05/16/2019 6:24 PM Workstation Name: [email or web address]
--- NOTE | 2019-05-16 18:36 | Discharge Summary ---
Providers - Providers Date of Admission: 05/13/19 00:40 Date of discharge: 05/16/19 Attending physician: FELICITA HOLGUIN 05/14/19 08:48 Consult to Physician [CONS] Urgent Comment: Consulting Provider: JOSE GUTIÉRREZ Physician Instructions: Reason For Exam: hx of HIV s/p repeat csec 05/14/19 08:52 Consult to Case Management [CONS] Urgent Services Needed at Discharge: Senior Account Representative Notified:: social service Additional Physician Instructions: Patient walk in, + HIV+. +marijuana Primary care physician: SUPERVISOR [facility] Hospitalization Reason for admission: active labor Delivery: Procedure: repeat low transverse Incision: normal, dry, intact Other procedures: none complications: other (Abdominal pain/distention) Discharge diagnosis: delivery Hospital course: Pt presented in active labor. Repeat was performed for HIV+ and prior x1. course notable for significant abdominal distention and pain with CT indicating marked intestinal gas. Pt will continue antiretroviral therapy as rxed by Shaun/Wiliam. Condition at discharge: Good Disposition: DC-01 TO HOME OR SELFCARE Plan - Discharge Medications Prescriptions: oxyCODONE /ACETAMINOPHEN [Percocet 5/325] 1 tab PO Q6HR PRN #30 tablet PRN Reason: Pain - Provider Discharge Summary Activity: routine, no sex for 6 weeks, no heavy lifting 4 weeks, no strenuous exercise Diet: routine Instructions: routine Additional instructions: [] Smoking cessation referral if applicable(refer to patient education folder for contact #) [] Refer to [facility] Booklet Call your doctor immediately for: * Fever > 100.5 * Heavy vaginal bleeding ( >1 pad per hour) * Severe persistent headache * Shortness of breath * Reddened, hot, painful area to leg or breast * Drainage or odor from incision. * Keep incision clean and dry at all times and follow doctor's instructions regarding bathing/showering - Follow up plan Follow up: FELICITA HOLGUIN MD [Staff Physician] - 14 Days (Please call [facility] to schedule appointment.)
== END 2019-05-16 21:00 | disposition home or self-care (01) | DRG 765 ==
LOC: TRG 23:16 → APU 05-13 00:40 → TRG 05-13 00:40 → OB 05-13 05:45
PROVIDERS: ADMIT Obstetrics & Gynecology; ATTEND Obstetrics & Gynecology
PROC: 10D00Z1 Extraction of Products of Conception, Low, Open Approach (ICD-10-PCS; principal; 2019-05-13)
PROC: 3E0134Z Introduction of Serum, Toxoid and Vaccine into Subcutaneous Tissue, Percutaneous Approach (ICD-10-PCS; 2019-05-14)
PROC: 3E0234Z Introduction of Serum, Toxoid and Vaccine into Muscle, Percutaneous Approach (ICD-10-PCS; 2019-05-15)
DX: O34.211 Maternal care for low transverse scar from previous cesarean delivery (principal); O60.14X0 Preterm labor third trimester with preterm delivery third trimester, not applicable or unspecified; Z3A.36 36 weeks gestation of pregnancy; Z37.0 Single live birth; K21.9 Gastro-esophageal reflux disease without esophagitis; Z90.49 Acquired absence of other specified parts of digestive tract; Z21 Asymptomatic human immunodeficiency virus [HIV] infection status; O99.354 Diseases of the nervous system complicating childbirth; O98.72 Human immunodeficiency virus [HIV] disease complicating childbirth; O99.89 Other specified diseases and conditions complicating pregnancy, childbirth and the puerperium; O99.324 Drug use complicating childbirth; F12.90 Cannabis use, unspecified, uncomplicated; N73.6 Female pelvic peritoneal adhesions (postinfective); O99.62 Diseases of the digestive system complicating childbirth; O90.81 Anemia of the puerperium
CPT/HCPCS: 36415; 74177; 80053; 80307; 84702; 85014; 85018; 85025; 86592; 86706; 86762; 86803; 86850; 86900; 86901; 88307; G0378; C1765; J0690; J1885; J2370; J2405; J2590; J2765; J3010; J3485; J3490; J7120; Q9967

== ENCOUNTER 2019-11-13 02:58 | Emergency (ER) | payer SELFPAY ==
[2019-11-13 03:23] VITALS: BP 123/75
[2019-11-13 03:47] LABS: Bacteria,Urine 1+ /HPF (Negative); Bilirubin,Urine NEG (Negative); Blood,Urine LG (Negative); Color,Urine Yellow (Yellow); Mucus,Urine 1+ /HPF; Protein,Urine <15 mg/dL mg/dL (Negative); Urobilinogen,Urine < 2.0 mg/dL (<2.0)
== END 2019-11-13 03:30 | disposition left against medical advice (07) ==
LOC: ED 02:58
DX: N93.9 Abnormal uterine and vaginal bleeding, unspecified (principal); Z53.21 Procedure and treatment not carried out due to patient leaving prior to being seen by health care provider
CPT/HCPCS: 81001

== ENCOUNTER 2020-09-25 00:54 | Emergency (ER) | payer MEDICAID ==
--- NOTE | 2020-09-25 01:13 | Emergency Department Report ---
Blank Doc - Documentation Documentation: [facility] Consult Note # Demographics Consult Type: Acute Stroke Level 1 (0-4.5 hrs) Patient Location: Emergency Room First Name: Aubrie Last Name: Grzegorz Date of : 1990 Age: 30 Gender: Female Time of Initial Page ( Time): 09/25/2020, 00:57 Time of Return Call ( Time): 09/25/2020, 00:57 # HPI History: 30yo F was driving and then developed right sided weakness/numbness. was having some shaking noted by family. started around 2400 EST. # Scores Time of exam and NIHSS ( Time): 09/25/2020, 01:10 Level of Consciousness 1a: [0] = Alert; keenly responsive LOC Questions 1b: [0] = Answers both questions correctly LOC Commands 1c: [0] = Performs both tasks correctly Best Gaze 2: [0] = Normal Visual 3: [0] = No visual loss Facial Palsy 4: [0] = Normal symmetrical movements Motor Arm Left 5a: [1] = Drift Motor Arm Right 5b: [1] = Drift Motor Leg Left 6a: [1] = Drift Motor Leg Right 6b: [1] = Drift Limb Ataxia 7: [0] = Absent Sensory 8: [0] = Normal Best Language 9: [0] = No aphasia Dysarthria 10: [0] = Normal Extinction and Inattention 11: [0] = No abnormality NIHSS Total: 4 # Exam Language: stuttering speech Additional Neurologic Exam: dyssynchronous bilateral UE shaking, not consistent with seizure, maintains consciousness during and type of movement also not consistent with seizure # PMH-FH-SH Past Medical History: HIV, chronic back pain # Assessment 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 recommend avoidance of benzos given exam findings at this time # Logistics Telemedicine: Interactive 2 way audio and visual telecommunication technology was utilized during this visit
--- NOTE | 2020-09-25 01:23 | Cat Scan Report ---
CT HEAD WITHOUT CONTRAST INDICATION / CLINICAL INFORMATION: Stuttering speech, reported left-sided weakness,. TECHNIQUE: All CT scans at this location are performed using CT dose reduction for ALARA by means of automated exposure control. COMPARISON: 10/04/17 FINDINGS: HEMORRHAGE: None. EXTRA-AXIAL SPACES: Normal in size and morphology for the patient's age. VENTRICULAR SYSTEM: Normal in size and morphology for the patient's age. CEREBRAL PARENCHYMA: No significant abnormality. No acute territorial infarct. MIDLINE SHIFT / HERNIATION: None. CEREBELLUM / BRAINSTEM: No significant abnormality. ORBITS: Normal as visualized. SOFT TISSUES: No significant abnormality. SKULL: No significant abnormality. PARANASAL SINUSES / MASTOID AIR CELLS: Normal as visualized. ADDITIONAL FINDINGS: None. IMPRESSION: No acute abnormality or significant change. CODE STROKE Time of Communication (HAT BAND ATTACHER/CDT): 12:15 AM Licensed Practitioner Receiving Report: Dr. Marcelo Signer Name: Nhan Gu MD Signed: 09/25/2020 1:18 AM Workstation Name: [id number]
[2020-09-25 01:31] LABS: Basophils # (Auto) 0.1 K/mm3 (0.0-0.1); Basophils % (Auto) 1.7 % (0.0-1.8); Eosinophils # (Auto) 0.2 K/mm3 (0.0-0.4); Eosinophils % (Auto) 2.6 % (0.0-4.3); Hematocrit 39.3 % (30.3-42.9); Hemoglobin 13.8 gm/dl (10.1-14.3); Lymphocytes # (Auto) 1.9 K/mm3 (1.2-5.4); Lymphocytes % (Auto) 26.4 % (13.4-35.0); Mean Corpuscular HGB Conc 35 % (30-34); Mean Corpuscular Volume 82 fl (79-97); Monocytes # (Auto) 0.5 K/mm3 (0.0-0.8); Monocytes % (Auto) 6.8 % (0.0-7.3); Platelet Count 196 K/mm3 (140-440); Red Blood Count 4.77 M/mm3 (3.65-5.03); Red Cell Distribution Width 13.3 % (13.2-15.2)
--- NOTE | 2020-09-25 01:33 | Emergency Department Report ---
HPI - HPI HPI: Charge nurse triage/room 1 The patient is a 30-year-old female present with a chief complaint of seizure- like activity. Patient was reportedly driving when she developed shaking of both arms. Patient was administered Versed by EMS. Upon arrival to the ED the patient is initially nonverbal but then makes eye contact and began shaking both upper extremities. Patient answers questions during this event <YI JENNINGS - Last Filed: 09/25/20 04:16> <LISBETH KELLOGG - Last Filed: 09/25/20 12:02> - General Chief Complaint: Neuro Symptoms/Deficit Time Seen by Provider: 09/25/20 01:04 ED Past Medical Hx - Past Medical History Hx Seizures: Yes (with last ) Hx HIV: Yes Additional medical history: previous back surgeries - Surgical History Hx Appendectomy: Yes Additional Surgical History: 3 lap surgeries, back surgery. barlin cyst - Family History Family history: no significant - Social History Smoking Status: Former Smoker Substance Use Type: Marijuana <YI JENNINGS - Last Filed: 09/25/20 04:16> <LISBETH KELLOGG - Last Filed: 09/25/20 12:02> - Medications Home Medications: Home Medications Medication Instructions Recorded Confirmed Last Taken Type Bictegrav/Emtricit/Tenofov Ala 50 mg PO DAILY 04/11/19 05/13/19 05/12/19 History [Biktarvy 50-200-25 mg (Nf)] oxyCODONE /ACETAMINOPHEN [Percocet 1 tab PO Q6HR PRN #30 tablet 05/15/19 Unknown Rx 5/325] Ferrous Sulfate [Ferrous Sulfate 324 mg PO BID #60 tablet.dr 05/16/19 Unknown Rx 324 MG] Ibuprofen [Motrin] 600 mg PO Q6H PRN #60 tablet 05/16/19 Unknown Rx hydrOXYzine PAMOATE [Vistaril] 25 mg PO BID PRN #60 capsule 09/25/20 Unknown Rx ED Review of Systems ROS: Stated complaint: STROKE ALERT Other details as noted in HPI Comment: Unobtainable due to pts medical conditions <YI JENNINGS - Last Filed: 09/25/20 04:16> ROS: Stated complaint: STROKE ALERT Other details as noted in HPI <LISBETH KELLOGG - Last Filed: 09/25/20 12:02> Physical Exam - Physical Exam Physical Exam: GENERAL: The patient is well-developed well-nourished female lying on stretcher with stuttering speech. [] HEENT: Normocephalic. Atraumatic. Extraocular motions are intact. Patient has moist mucous membranes. NECK: Supple. Trachea midline CHEST/LUNGS: Clear to auscultation. There is no respiratory distress noted. HEART/CARDIOVASCULAR: Regular. There is no tachycardia. There is no gallop rub or murmur. ABDOMEN: Abdomen is soft, nontender. Patient has normal bowel sounds. There is no abdominal distention. SKIN: There is no rash. There is no edema. There is no diaphoresis. NEURO: The patient is awake and alert. The patient is not cooperative with neurologic exam. The patient moves all 4 extremities. The patient has stuttering speech MUSCULOSKELETAL: There is no evidence of acute injury. Repeat exam at 04:16 Patient has occasional stammering speech Cranial nerves II through XII grossly intact. Moves all extremities well. <YI JENNINGS - Last Filed: 09/25/20 04:16> - Physical Exam Vital Signs: Vital Signs 09/25/20 09/25/20 09/25/20 01:12 02:00 03:30 Temperature 98.1 F Pulse Rate 85 64 80 Respiratory 18 14 16 Rate Blood Pressure 101/55 Blood Pressure 97/58 88/36 [Left] O2 Sat by Pulse 99 97 100 Oximetry 09/25/20 09/25/20 09/25/20 03:48 05:20 06:15 Temperature Pulse Rate 66 82 Respiratory 14 16 Rate Blood Pressure Blood Pressure 112/68 92/53 92/51 [Left] O2 Sat by Pulse 98 97 Oximetry 09/25/20 09/25/20 09/25/20 06:57 07:14 07:47 Temperature Pulse Rate 67 Respiratory 14 16 Rate Blood Pressure Blood Pressure 90/53 110/70 123/90 [Left] O2 Sat by Pulse 98 98 Oximetry 09/25/20 10:52 Temperature Pulse Rate 81 Respiratory 16 Rate Blood Pressure Blood Pressure 98/62 [Left] O2 Sat by Pulse 98 Oximetry <LISBETH KELLOGG - Last Filed: 09/25/20 12:02> ED Course Vital Signs 09/25/20 09/25/20 09/25/20 01:12 02:00 03:30 Temperature 98.1 F Pulse Rate 85 64 80 Respiratory 18 14 16 Rate Blood Pressure 101/55 Blood Pressure 97/58 88/36 [Left] O2 Sat by Pulse 99 97 100 Oximetry 09/25/20 09/25/20 09/25/20 03:48 05:20 06:15 Temperature Pulse Rate 66 82 Respiratory 14 16 Rate Blood Pressure Blood Pressure 112/68 92/53 92/51 [Left] O2 Sat by Pulse 98 97 Oximetry 09/25/20 09/25/20 09/25/20 06:57 07:14 07:47 Temperature Pulse Rate 67 Respiratory 14 16 Rate Blood Pressure Blood Pressure 90/53 110/70 123/90 [Left] O2 Sat by Pulse 98 98 Oximetry 09/25/20 10:52 Temperature Pulse Rate 81 Respiratory 16 Rate Blood Pressure Blood Pressure 98/62 [Left] O2 Sat by Pulse 98 Oximetry <LISBETH KELLOGG - Last Filed: 09/25/20 12:02> ED Medical Decision Making - Lab Data Result diagrams: 09/25/20 01:15 09/25/20 01:15 Laboratory Tests 09/25/20 09/25/20 09/25/20 01:15 01:15 01:15 WBC 7.0 RBC 4.77 Hgb 13.8 Hct 39.3 MCV 82 MCH 29 MCHC 35 H RDW 13.3 Plt Count 196 Lymph % (Auto) 26.4 [place] % (Auto) 6.8 Eos % (Auto) 2.6 Baso % (Auto) 1.7 Lymph # (Auto) 1.9 [place] # (Auto) 0.5 Eos # (Auto) 0.2 Baso # (Auto) 0.1 Seg Neutrophils % 62.5 Seg Neutrophils # 4.4 PT INR APTT Sodium 139 Potassium 4.1 Chloride 105.8 Carbon Dioxide 23 Anion Gap 14 BUN 8 Creatinine 0.6 Estimated GFR > 60 BUN/Creatinine Ratio 13 Glucose 103 H Calcium 9.0 Magnesium Total Bilirubin 0.30 AST 18 ALT 15 Alkaline Phosphatase 87 Total Creatine Kinase 110 CK-MB (CK-2) < 1.0 CK-MB (CK-2) Rel Index 0.9 Troponin T Total Protein 7.4 Albumin 4.4 Albumin/Globulin Ratio 1.5 TSH Free T4 HCG, Qual Negative Urine Color Urine Turbidity Urine pH Ur Specific [place] Urine Protein Urine Glucose (UA) Urine Ketones Urine Blood Urine Nitrite Urine Bilirubin Urine Urobilinogen Ur Leukocyte Esterase Urine WBC (Auto) Urine RBC (Auto) U Epithel Cells (Auto) Urine Opiates Screen Urine Methadone Screen Ur Barbiturates Screen Ur Phencyclidine Scrn Ur Amphetamines Screen U Benzodiazepines Scrn Urine Cocaine Screen U Marijuana (THC) Screen Drugs of Abuse Note Plasma/Serum Alcohol 09/25/20 09/25/20 09/25/20 01:15 01:15 01:15 WBC RBC Hgb Hct MCV MCH MCHC RDW Plt Count Lymph % (Auto) [place] % (Auto) Eos % (Auto) Baso % (Auto) Lymph # (Auto) [place] # (Auto) Eos # (Auto) Baso # (Auto) Seg Neutrophils % Seg Neutrophils # PT 14.1 INR 1.11 APTT 31.0 Sodium Potassium Chloride Carbon Dioxide Anion Gap BUN Creatinine Estimated GFR BUN/Creatinine Ratio Glucose Calcium Magnesium 2.10 Total Bilirubin AST ALT Alkaline Phosphatase Total Creatine Kinase CK-MB (CK-2) CK-MB (CK-2) Rel Index Troponin T < 0.010 Total Protein Albumin Albumin/Globulin Ratio TSH 1.510 Free T4 1.21 HCG, Qual Urine Color Urine Turbidity Urine pH Ur Specific [place] Urine Protein Urine Glucose (UA) Urine Ketones Urine Blood Urine Nitrite Urine Bilirubin Urine Urobilinogen Ur Leukocyte Esterase Urine WBC (Auto) Urine RBC (Auto) U Epithel Cells (Auto) Urine Opiates Screen Urine Methadone Screen Ur Barbiturates Screen Ur Phencyclidine Scrn Ur Amphetamines Screen U Benzodiazepines Scrn Urine Cocaine Screen U Marijuana (THC) Screen Drugs of Abuse Note Plasma/Serum Alcohol 09/25/20 09/25/20 09/25/20 01:15 02:28 02:28 WBC RBC Hgb Hct MCV MCH MCHC RDW Plt Count Lymph % (Auto) [place] % (Auto) Eos % (Auto) Baso % (Auto) Lymph # (Auto) [place] # (Auto) Eos # (Auto) Baso # (Auto) Seg Neutrophils % Seg Neutrophils # PT INR APTT Sodium Potassium Chloride Carbon Dioxide Anion Gap BUN Creatinine Estimated GFR BUN/Creatinine Ratio Glucose Calcium Magnesium Total Bilirubin AST ALT Alkaline Phosphatase Total Creatine Kinase CK-MB (CK-2) CK-MB (CK-2) Rel Index Troponin T Total Protein Albumin Albumin/Globulin Ratio TSH Free T4 HCG, Qual Urine Color Straw Urine Turbidity Clear Urine pH 7.0 Ur Specific [place] 1.006 Urine Protein <15 mg/dl Urine Glucose (UA) Neg Urine Ketones Neg Urine Blood Mod Urine Nitrite Neg Urine Bilirubin Neg Urine Urobilinogen < 2.0 Ur Leukocyte Esterase Neg Urine WBC (Auto) 0.0 Urine RBC (Auto) 2.0 U Epithel Cells (Auto) 2.0 Urine Opiates Screen Negative Urine Methadone Screen Negative Ur Barbiturates Screen Negative Ur Phencyclidine Scrn Negative Ur Amphetamines Screen Negative U Benzodiazepines Scrn Positive Urine Cocaine Screen Negative U Marijuana (THC) Screen Positive Drugs of Abuse Note Disclamer Plasma/Serum Alcohol < 0.01 - Radiology Data Radiology results: report reviewed (CT head), image reviewed (CT head) [facility] [address] [place] [address] Cat Scan Report Signed Patient: SACHA LOPEZ MR#: [id number] : 1990 Acct:[id number] Age/Sex: 30 / F ADM Date: 09/25/20 Loc: ED Attending Dr: Ordering Physician: YI JENNINGS MD Date of Service: 09/25/20 Procedure(s): CT head/brain wo con Accession Number(s): [id number] cc: YI JENNINGS MD CT HEAD WITHOUT CONTRAST INDICATION / CLINICAL INFORMATION: Stuttering speech, reported left-sided weakness,. TECHNIQUE: All CT scans at this location are performed using CT dose reduction for ALARA by means of automated exposure control. [facility] FINDINGS: HEMORRHAGE: None. EXTRA-AXIAL SPACES: Normal in size and morphology for the patient's age. VENTRICULAR SYSTEM: Normal in size and morphology for the patient's age. CEREBRAL PARENCHYMA: No significant abnormality. No acute territorial infarct. MIDLINE SHIFT / HERNIATION: None. CEREBELLUM / BRAINSTEM: No significant abnormality. ORBITS: Normal as visualized. SOFT TISSUES: No significant abnormality. SKULL: No significant abnormality. PARANASAL SINUSES / MASTOID AIR CELLS: Normal as visualized. ADDITIONAL FINDINGS: None. IMPRESSION: No acute abnormality or significant c hange. CODE STROKE Time of Communication (DATA COLLECTION INTERVIEWER/CDT): 12:15 AM Licensed Practitioner Receiving Report: Dr. Jennings Signer Name: Nhan Gu MD Signed: 09/25/2020 1:18 AM Workstation Name: [id number] Transcribed By: RT Dictated By: Nhan Gu MD Electronically Authenticated By: Nhan Gu MD Signed Date/Time: 09/25/20117 DD/ 4 TD/TT: Print Cancel - Differential Diagnosis Anxiety, substance abuse, electrolyte imbalance, rhabdomyolysis <YI JENNINGS - Last Filed: 09/25/20 04:16> - Lab Data Result diagrams: 09/25/20 01:15 09/25/20 01:15 - Medical Decision Making Patient remained stable in the ER. Patient has been evaluated by our psychiatric team and cleared for discharge. Patient still stuttering. Patient is going through a lot of stress in her life. She stated that she has been diagnosed with HIV and her 3 years old daughter also been diagnosed with HIV. Patient stated that she lived with her mother. Patient currently denying any suicidal homicidal ideation. Patient stated that she will follow-up with her psychiatric as an outpatient in the next 2 to 3 days and advised to return to the ER she develop any new symptoms. Patient is medically and psychiatrically stable for discharge. <LISBETH KELLOGG - Last Filed: 09/25/20 12:02> Critical care attestation.: If time is entered above; I have spent that time in minutes in the direct care of this critically ill patient, excluding procedure time. <YI JENNINGS - Last Filed: 09/25/20 04:16> Critical care attestation.: If time is entered above; I have spent that time in minutes in the direct care of this critically ill patient, excluding procedure time. <LISBETH KELLOGG - Last Filed: 09/25/20 12:02> ED Disposition <YI JENNINGS - Last Filed: 09/25/20 04:16> Is pt being admited?: No <BESSLISBETH CornelioSanford - Last Filed: 09/25/20 12:02> Clinical Impression: Anxiety attack, Stuttering, Nausea Disposition: DC-01 TO HOME OR SELFCARE Condition: Stable Instructions: Supporting Someone With Anxiety, Managing Anxiety, Adult Additional Instructions: Professional and Agency Contacts To help [facility](23/12) [place] Crisis Line: Suicide Prevention Line: Crisis Text Line: Text START to 798609 Emergency: 911 Outpatient [facility] Behavioral Health Resources: [place]: [facility] [address] [place], [place] [address] [place]: [address] [address] [place]: [facility] - [address] [place] [address] Friday thru Friday - 8am - 5pm [facility] Address: [address] [place] [address] [place]: [facility] Address: [address] [place] [address] Friday thru Friday- 7am-2pm [facility] Address: [address] [place] [address] Friday thru Friday: 8:30AM-5PM Prescriptions: hydrOXYzine PAMOATE [Vistaril] 25 mg PO BID PRN #60 capsule PRN Reason: Anxiety Referrals: PRIMARY CARE,MD [Primary Care Provider] - 3-5 Days
[2020-09-25 01:50] LABS: INR 1.11 (0.87-1.13)
[2020-09-25 01:57] LABS: Alanine Aminotransferase 15 units/L (7-56); Albumin 4.4 g/dL (3.9-5); Blood Urea Nitrogen 8 mg/dL (7-17); Hemolysis Index 2
[2020-09-25 02:05] LABS: BUN/Creatinine Ratio 13; Creatine Kinase MB < 1.0 ng/mL (0.0-4.0)
[2020-09-25 02:23] LABS: Free T4 (Free Thyroxine) 1.21 ng/dL (0.76-1.46)
[2020-09-25 02:52] LABS: Bilirubin,Urine NEG (Negative); Blood,Urine MOD (Negative); Color,Urine Straw (Yellow); Protein,Urine <15 mg/dL mg/dL (Negative); Urobilinogen,Urine < 2.0 mg/dL (<2.0)
[2020-09-25] MEDS ORDERED: SODIUM CHLORIDE 0.9% 1000 ML 2,000 ML ONE (03:04)
[2020-09-25] MEDS ORDERED: SODIUM CHLORIDE 0.9% 1000 ML 1,000 ML IV ONE ×3 (03:05→05:22)
[2020-09-25 03:11] LABS: Amphetamine Screen,Urine Negative; Cocaine Screen,Urine Negative; Methadone Screen,Urine Negative; Opiate Screen,Urine Negative
[2020-09-25 03:29] LABS: Benzodiazepines Screen,Urine Positive; Cannabinoid Screen,Urine Positive
--- NOTE | 2020-09-25 11:18 | Consultation ---
History of Present Illness - Reason for Consult Consult date: 09/25/20 Reason for consult: anxiety - History of Present Psychiatric Illness Per ER Note: The patient is a 30-year-old female present with a chief complaint of seizure-like activity. Patient was reportedly driving when she developed shaking of both arms. Patient was administered Versed by EMS. Upon arrival to the ED the patient is initially nonverbal but then makes eye contact and began shaking both upper extremities. Patient answers questions during this event Aubrie Lantigua is a 30y/o female who is not known to me. The patient tells me that while she was driving she started having pain in her right arm and her whole right side went to sleep. The patient is stuttering. Every word is broken. When asking her if she stuttered, she says "no, I don't know why I'm talking like this. I need to find out." She verbalized feeling anxious. She denies ever seeing a psychiatrist. The patient says "my regular doctor wants me to see one but I keep missing the appointments every time they give me one." She says "I have one October 10. I'm going to keep this one." She denies any illicit drug use, alcohol or nicotine. The patient also denies any psychiatric history or past suicide attempts. She denies SI/HI or hallucinations of any kind. The patient says "no, no I don't want to hurt myself or anybody. I want to go home to my babies." PAST PSYCHIATRIC HISTORY: Diagnoses: Denies Suicide attempts or Self-harm behavior: Denies Prior psychiatric hospitalizations: Denies Substance Abuse history: Denies Previous psychiatric medications tried: Denies Outpatient treatment: Denies PAST MEDICAL HISTORY: Seizures Family Psychiatric History: None reported or documented SOCIAL HISTORY Marital Status: Living Arrangements: mom and children Employment Status: Employed Access to guns/weapons: Denies Education: high school History of Abuse: Denies Legal History: Denies REVIEW OF SYSTEMS Constitutional: Negative for weight loss ENT: Negative for stridor Respiratory: Negative for cough or hemoptysis All other systems reviewed and are negative MENTAL STATUS EXAMINATION General Appearance and Behavior: Age appropriate, good hygiene, not wearing appropriate clothes, good eye contact, anxious and cooperative Cooperation: Participating, uncooperative at times Psychomotor Behavior: Psychomotor normal Mood: anxious Affect and affective range: Congruent with stated mood Thought Process: goal oriented Speech: Normal tone and pace Thought Content Suicidal Ideation: Denies Homicidal Ideation: Denies Hallucinations: Denies Delusions: None elicited Impulse Control: Limited Insight and Judgment: Normal insight and judgment Memory: Normal Attention: undivided attention Orientation: A/o x 3 Assessment and Plan (1) Generalized Anxiety Disorder Current Visit: Yes Status: Acute Treatment Plan Vistaril 25mg po BID Keep appointment with psychiatrist in two weeks for med management and CBT Sitter: Defer to primary Medical: Per primary Disposition: Do not recommend acute psychiatric inpatient at this time The harvest supervisor to give the patient additional resources for CBT and outpatient services Will sign off. Thank you for this consult. Case discussed with Dr. Mary. Medications and Allergies Allergies Allergy/AdvReac Type Severity Reaction Status Date / Time No Known Allergies Allergy Verified 05/12/19 23:22 Home Medications Medication Instructions Recorded Confirmed Last Taken Type Bictegrav/Emtricit/Tenofov Ala 50 mg PO DAILY 04/11/19 05/13/19 05/12/19 History [Biktarvy 50-200-25 mg (Nf)] oxyCODONE /ACETAMINOPHEN [Percocet 1 tab PO Q6HR PRN #30 tablet 05/15/19 Unknown Rx 5/325] Ferrous Sulfate [Ferrous Sulfate 324 mg PO BID #60 tablet. 05/16/19 Unknown Rx 324 MG] Ibuprofen [Motrin] 600 mg PO Q6H PRN #60 tablet 05/16/19 Unknown Rx Mental Status Exam - Vital signs Last Vital Signs Temp 98.1 F 09/25/20 01:12 Pulse 81 09/25/20 10:52 Resp 16 09/25/20 10:52 BP 98/62 09/25/20 10:52 Pulse Ox 98 09/25/20 10:52 Results Result Diagrams: 09/25/20 01:15 09/25/20 01:15 Abnormal lab results 09/25/20 09/25/20 Range/Units 01:15 01:15 MCHC 35 H (30-34) % Glucose 103 H (65-100) mg/dL All other labs normal.
[2020-09-25] MEDS ORDERED: hydrOXYzine PAMOATE 25 MG CAP PO SCH (12:00)
[2020-09-25 12:15] VITALS: BP 116/94
== END 2020-09-25 12:17 | disposition home or self-care (01) ==
LOC: ED 00:54
DX: F41.9 Anxiety disorder, unspecified (principal); R56.9 Unspecified convulsions; R11.0 Nausea; F80.81 Childhood onset fluency disorder; Z21 Asymptomatic human immunodeficiency virus [HIV] infection status; Z98.890 Other specified postprocedural states; Z79.1 Long term (current) use of non-steroidal anti-inflammatories (NSAID); Z79.899 Other long term (current) drug therapy
CPT/HCPCS: 36415; 70450; 80053; 80307; 81001; 82550; 82553; 83735; 84439; 84443; 84484; 84703; 85025; 85610; 85730; 96360; 96361; 99284; J7030; Q0177; 80320; G0480

== ENCOUNTER 2021-07-01 09:57 | Emergency (ER) | payer MEDICAID ==
[2021-07-01] MEDS ORDERED: NEOMY 3.5 MG/BACIT 400 UNITS/POLY B 5000 UNITS/GM OINT PACKET TP ONE (10:34)
[2021-07-01] MEDS ORDERED: oxyCODONE /ACETAMINOPHEN 5-325MG TAB PO ONE (10:34)
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
[2021-07-01 15:26] VITALS: BP 120/72
== END 2021-07-01 15:27 | disposition home or self-care (01) ==
LOC: ED 09:57
DX: S60.519A Abrasion of unspecified hand, initial encounter (principal); S61.309A Unspecified open wound of unspecified finger with damage to nail, initial encounter; M79.642 Pain in left hand; M79.641 Pain in right hand; M25.521 Pain in right elbow; Z21 Asymptomatic human immunodeficiency virus [HIV] infection status; Z98.890 Other specified postprocedural states; Z87.891 Personal history of nicotine dependence; F12.90 Cannabis use, unspecified, uncomplicated; V00.141A Fall from scooter (nonmotorized), initial encounter; Y93.89 Activity, other specified; Y92.89 Other specified places as the place of occurrence of the external cause; Y99.8 Other external cause status
CPT/HCPCS: 72040; 99283